=== PATIENT | female | born 1980 | race Two or more races ===

== ENCOUNTER 2016-09-11 17:54 | Emergency (ER) | payer MEDICAID ==
[~2016-09-11] VITALS: Ht 157.5 cm; Wt 76.7 kg
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
[2016-09-11] MEDS ORDERED: TRAMADOL HCL 50 MG TABLET ONE (18:24)
[2016-09-11] MEDS ORDERED: TRAMADOL HCL 50 MG TABLET PO ONE (18:30)
--- NOTE | 2016-09-11 19:10 | NUR ---
RESTING QUIETLY, NAD NOTED. ALL NEEDS ATTENDED TO.
--- NOTE | 2016-09-11 19:13 | NUR ---
CALLED [facility]DEL[facility]HMAN TO READ XRAY
[2016-09-11 19:34] VITALS: BP 122/76
== END 2016-09-11 19:34 | disposition home or self-care (01) ==
LOC: ER 17:57
DX: S70.02XA Contusion of left hip, initial encounter (principal); V03.99XA Pedestrian with other conveyance injured in collision with car, pick-up truck or van, unspecified whether traffic or nontraffic accident, initial encounter; Y93.01 Activity, walking, marching and hiking; Y92.480 Sidewalk as the place of occurrence of the external cause; Y99.8 Other external cause status
CPT/HCPCS: 73503; 84703; 99284; A4606; Z7610; 73510-TC